=== PATIENT | male | born 1960 | race Caucasian/White ===

== ENCOUNTER 2016-08-30 17:52 | Emergency (ER) | payer BC ==
[2016-08-30 18:46] LABS: CHLORIDE,CL 104 mmol/L (98-107); SODIUM,NA 141 mmol/L (136-145)
[2016-08-30] MEDS ORDERED: Aspirin 81 MG Tab.Chew PO ONE (19:33)
--- NOTE | 2016-08-31 08:35 | ER ---
Date of Service: 08/30/2016 SUBJECTIVE: Luis presents to the emergency room with complaints of bilateral visual field loss. The patient states that he was at home last night using his computer when he developed acute onset of visual field loss and bilateral hemianopsia. The patient states that is at the onset of the visual field loss he had onset of a headache that lasted approximately 6 hours. He states that when he woke this morning, he was experiencing what he would describe as "tunnel vision." He states that his headache had improved. He was not experiencing any muscle weakness in his upper lower extremities, difficulties with speech or ambulation, or other worrisome signs or symptoms. Risk factors for stroke include hypertension, type 2 diabetes mellitus, and dyslipidemia. He denies any recent head trauma. PAST MEDICAL HISTORY: 1. Hypertension. 2. Dyslipidemia. 3. Type 2 diabetes mellitus. 4. Hypothyroidism. MEDICATIONS: 1. Lisinopril/hydrochlorothiazide 20/12.5 one tablet daily. 2. Metformin 500 mg p.o. b.i.d. 3. Atorvastatin 20 mg p.o. daily. 4. Levothyroxine 150 mcg p.o. daily. ALLERGIES: NKDA. REVIEW OF SYSTEMS: Constitutional: Denies any fever or chills. HEENT: No sore throat, rhinorrhea, or congestion. Again, has profound bilateral visual field loss, acute onset last night approximately 2030 hours. Denies any facial droop or weakness. Respiratory: No shortness of breath. Cardiac: Denies any substernal chest pain. No jaw, arm, neck, or back pain. GI: No nausea, vomiting, or diarrhea. No melena, hematochezia, or hematemesis. : Denies any dysuria. Musculoskeletal: No myalgias or arthralgias. Neurologic: No fainting, blackouts, or lightheadedness. PHYSICAL EXAMINATION: General: This is a 56-year-old male patient, who is in no acute distress. At one point during his care, he did complain of mild occipital headache. Vital Signs: Initial blood pressure was 161/85 and this improved to 142/78, heart rate initially 101 and was later found to be approximately 84, respiratory rate in the low to mid 20s, temperature is 97.9, and O2 saturation 96% on room air. Skin: Warm, pink, and dry. HEENT. Head is normocephalic, atraumatic. Eyes, PERRLA. Extraocular movements are intact. Visual pacheco, he does have a profound visual field deficit bilaterally. At approximately 10 to 15 degrees, he has lost his visual pacheco bilaterally. It appears to be a bit worse on the right than on the left. No facial droop noted. Chest: No sternal or intercostal retractions noted. Lungs: Clear to auscultation. Heart: Regular rate and rhythm. Abdomen: Soft and nontender. There is no hepatosplenomegaly noted. There are no masses noted. Extremities: Without edema. Neurologic: He is alert. Answers all questions appropriately. His speech is fluent. His gait is within normal limits. Please refer to his NIH stroke scale. He has no pronator drift. His Romberg is negative. He has 5/5 strength in both his upper and lower extremities. DIAGNOSTIC DATA: CT scan of the patient's brain without contrast was obtained. He does have evidence of a hypodensity in the occipital portion of the left lobe of this brain consistent with an ischemic stroke. He also has moderate amount of intracranial atherosclerosis and calcification. The findings are consistent with an acute to early subacute ischemic stroke, which is consistent with his history provided to us. LABORATORY DATA: CBC was obtained. WBCs 8.8, hemoglobin is 14.4, and platelets are 268. PT is 9.6, INR is 0.8, and PTT is 24.7. Chemistry; sodium is 141, potassium is 3.8, chloride is 104, bicarb is 27, BUN is 24, creatinine is 1.0, GFR is greater than 60, glucose 168, calcium is 8.4, and corrected calcium is 8.32. Total bilirubin is 0.4, AST is 36, ALT is 63, and alkaline phosphatase is 83. Troponin is 0.00. Total protein is 7.3. EMERGENCY ROOM COURSE: Stroke code was called. IV access was established. He was emergently brought to CT for CT scan. Labs were drawn. On finding the CT results, he was given 324 mg of aspirin p.o. He remained stable my care in the emergency room. ASSESSMENT: Acute ischemic stroke involving the left occipital portion with bilateral visual field loss (hemianopsia). PLAN: I did speak with Dr. Hernández, the neurologist, on-call at [facility] in [place]. He advised that the patient be transferred to their facility for CT angiogram, carotid ultrasound, and further evaluation and workup by Neurology. I did discuss this with the patient and he adamantly refused transfer. Did speak with him numerous times regarding this and informed him that this is a potentially a condition that could cause complete blindness and could be potentially life-threatening. Again, he was alert to time, date, and place and was able to answer all questions and did not appear to be in anyway impaired, and was able to make some decisions about his medical condition, but he continued to refuse. He did sign the AMA form and this was discussed with the patient. He again was informed that he could become completely blind or experience potential for intracranial hemorrhage, particularly in the subacute phase following an ischemic CVA. He was also informed that he has other atherosclerosis, so he does have risk for further worsening of his symptoms or different symptoms of cerebrovascular accident, but he continues to refuse. He was given an open ended invitation to return to the emergency room if he decides to. He did ask where to go tomorrow to be evaluated and he was advised to go to [facility] Emergency Room for evaluation and treatment. He is to start 81 mg of aspirin once daily. All questions were answered. MWK: 08/30/2016 20:34:48 MODL: 08/30/2016 21:29:25 /[id number]
== END 2016-08-30 19:55 | disposition left against medical advice (07) ==
LOC: VM.ED 17:52
DX: I63.9 Cerebral infarction, unspecified (principal); H54.3 Unqualified visual loss, both eyes; I10 Essential (primary) hypertension; E11.9 Type 2 diabetes mellitus without complications; E03.9 Hypothyroidism, unspecified; Z79.899 Other long term (current) drug therapy
CPT/HCPCS: 70450; 80053; 84484; 85025; 85610; 85730; 99285; A9270

== ENCOUNTER 2018-09-04 12:16 | Emergency (ER) | payer BC ==
[2018-09-04] MEDS ORDERED: Take Home: Amoxicillin/Clavulanate K 875-125 MG Tab, 2 Tab Pack PO ONE (12:43)
[2018-09-04] MEDS ORDERED: Take Home: Acetaminophen/HYDROcodone 325-5 MG, 5 Tab Pack PO ONE (12:43)
--- NOTE | 2018-09-04 14:47 | EDM.PDOC ---
ED HPI GENERAL MEDICAL PROBLEM - General Stated Complaint: TOOTH ACHE Time Seen by Provider: 09/04/18 12:16 Source of Information: Reports: Patient History Limitations: Reports: No Limitations - History of Present Illness INITIAL COMMENTS - FREE TEXT/NARRATIVE: PtHanny presents to ED with 3-4 day history of pain to R lower premolar area. He denies any fever or chills. He states that he does not have/routinely go to a dentist. States that he has noted swelling to the R side of his face. No problems with swallowing/managing his secretions. No chest pain or shortness of breath. No nausea, vomiting, or diarrhea. Denies any neck pain/decreased ROM. Onset: Today Onset Date: 09/04/18 Location: Reports: Face Quality: Reports: Ache, Burning Severity: Moderate - Related Data Allergies Allergy/AdvReac Type Severity Reaction Status Date / Time No Known Allergies Allergy Verified 08/30/16 19:23 Home Meds: Home Meds Levothyroxine Sodium 150 mcg PO DAILY 08/30/16 [History] Lisinopril/Hydrochlorothiazide [Lisinopril-Hctz 20-12.5 mg Tab] 1 tab PO DAILY 08/30/16 [History] atorvaSTATin Calcium [Atorvastatin Calcium] 20 mg PO DAILY 08/30/16 [History] metFORMIN HCl [Metformin HCl] 500 mg PO BID 08/30/16 [History] ED ROS GENERAL - Review of Systems Review Of Systems: See Below Constitutional: Reports: No Symptoms HEENT: Reports: Dental Pain Respiratory: Reports: No Symptoms Cardiovascular: Reports: No Symptoms Endocrine: Reports: No Symptoms GI/Abdominal: Reports: No Symptoms : Reports: No Symptoms Musculoskeletal: Reports: No Symptoms Skin: Reports: No Symptoms Neurological: Reports: No Symptoms Psychiatric: Reports: No Symptoms Hematologic/Lymphatic: Reports: No Symptoms Immunologic: Reports: No Symptoms ED EXAM, GENERAL - Physical Exam Exam: See Below Exam Limited By: No Limitations General Appearance: Alert, WD/WN, No Apparent Distress Eye Exam: Bilateral Eye: EOMI, Normal Fundi, Normal Inspection, PERRL Nose: Normal Inspection, Normal Mucosa Throat/Mouth: Normal Inspection, Normal Lips, Other (dental caries to R canine as well as R premolar. No obvious abscess. There is some mild swelling to the R side of the face. Minimal lymphadenopathy) Neck: Normal Inspection, Supple, Non-Tender, Full Range of Motion Course - Orders/Labs/Meds Meds: Medications Discontinued Medications Generic Name Dose Route Start Last Admin Trade Name Titus PRN Reason Stop Dose Admin Hydrocodone Bitart/Acetaminophen 1 packet 09/04/18 12:43 09/04/18 13:05 Take Home: Acetam/Hydrocodon 325-5 Mg, 5 Pack PO 09/04/18 12:44 1 packet ONETIME ONE Administration Amoxicillin/Clavulanate Potassium 1 packet 09/04/18 12:43 09/04/18 13:05 Take Home: Amox/Clavulanate 875-12, 2 Tab Pac PO 09/04/18 12:44 1 packet ONETIME ONE Administration Departure - Departure Time of Disposition: 13:05 Disposition: Home, Self-Care 01 Condition: Good Clinical Impression: Dental infection - Discharge Information Instructions: Acetaminophen; Hydrocodone tablets or capsules, Amoxicillin; Clavulanic Acid tablets, Dental Abscess Referrals: Ju Cazares CUST[employer]ER SERVICE ASSISTANT [Primary Care Provider] - Additional Instructions: augmentin 875mg 1 twice daily for 10 days norco 5/325mg 1 every 4-6 hours as needed for pain Ibuprofen 600mg every 6 hours Follow-up with dentist EDDIE - Assessment/Plan Plan: augmentin 875mg 1 twice daily for 10 days norco 5/325mg 1 every 4-6 hours as needed for pain Ibuprofen 600mg every 6 hours Follow-up with dentist EDDIE
== END 2018-09-04 13:05 | disposition home or self-care (01) ==
LOC: VM.ED 12:16
DX: K04.7 Periapical abscess without sinus (principal); K02.9 Dental caries, unspecified; Z79.899 Other long term (current) drug therapy
CPT/HCPCS: 99282; A9270

== ENCOUNTER 2025-03-02 17:46 | Emergency (ER) | payer BC ==
[2025-03-02 18:18] LABS: BASOPHILS ABSOLUTE AUTO 0.0 x10^3/uL (0.0-0.2); BASOPHILS PERCENT AUTO 0.3 % (0.2-1.2); EOSINOPHILS ABSOLUTE AUTO 0.1 x10^3/uL (0.0-0.5); EOSINOPHILS PERCENT AUTO 1.0 % (0.0-4.0); IMMATURE GRAN ABSOLUTE AUTO 0.03 x10^3/uL (0.00-0.07); IMMATURE GRAN PERCENT AUTO 0.30 % (0.00-0.43); LYMPHOCYTES ABSOLUTE AUTO 1.0 x10^3/uL (1.0-4.8); LYMPHOCYTES PERCENT AUTO 8.5 % (25.0-50.0); MONOCYTES ABSOLUTE AUTO 0.6 x10^3/uL (0.0-0.8); MONOCYTES PERCENT AUTO 5.6 % (2.0-11.0); NEUTROPHILS ABSOLUTE AUTO 9.5 x10^3/uL (1.8-7.7); NEUTROPHILS PERCENT AUTO 84.3 % (50.0-80.0); PLATELET COUNT,PLT 286 x10^3/uL (130-400); RED BLOOD CELL COUNT 4.99 x10^6/uL (4.5-6.0); WHITE BLOOD CELL COUNT,WBC 11.3 x10^3/uL (4.0-10.0)
[2025-03-02 18:19] LABS: APPEARANCE,URINE CLEAR (CLEAR); GLUCOSE,URINE 500 mg/dL (NEGATIVE); OCCULT BLOOD,URINE NEGATIVE (NEGATIVE)
[2025-03-02 18:30] LABS: SQUAMOUS EPITHELIAL CELLS,UR RARE /HPF (NOT SEEN)
[2025-03-02 18:38] LABS: A/G RATIO 0.89; ALANINE AMINOTRANSFERASE,ALT 20 U/L (16-63); ASPARTATE AMNIOTRANSFERASE,AST 14 U/L (15-37); BILIRUBIN TOTAL 0.3 mg/dL (0.2-1.0); BLOOD UREA NITROGEN,BUN 27 mg/dL (7-18); CARBON DIOXIDE,CO2 31 mmol/L (21-32); CHLORIDE,CL 100 mmol/L (98-107); CREATININE 1.1 mg/dL (0.70-1.30); ESTIMATED GFR 75 mL/min (>=60); GLUCOSE RANDOM 258 mg/dL (70-99); POTASSIUM,K 4.2 mmol/L (3.5-5.1); PROTEIN TOTAL,TP 7.2 g/dL (6.4-8.2); SODIUM,NA 139 mmol/L (136-145)
[2025-03-02] MEDS ORDERED: Sodium Chloride 0.9% 10 ML Syringe FLUSH PRN (18:40)
[2025-03-02] MEDS: Ondansetron 4 MG/2 ML SDV IVPUSH ONE (18:53)
[2025-03-02] MEDS: Iopamidol 612 MG/ML 100 ML Bottle IVPUSH ONE (19:19)
== END 2025-03-02 21:12 | disposition left against medical advice (07) ==
LOC: VM.ED 17:46
DX: K56.609 Unspecified intestinal obstruction, unspecified as to partial versus complete obstruction (principal); E11.9 Type 2 diabetes mellitus without complications; I10 Essential (primary) hypertension; E78.00 Pure hypercholesterolemia, unspecified; Z79.890 Hormone replacement therapy; Z79.899 Other long term (current) drug therapy; Z79.84 Long term (current) use of oral hypoglycemic drugs
CPT/HCPCS: 36415; 74177; 80053; 81001; 83690; 85025; 86140; 96374; 96375; 99284; 99284-25; J2270; J2405; Q9967

== ENCOUNTER 2025-03-03 08:32 | Emergency (ER) | payer BC ==
[2025-03-03] MEDS ORDERED: Sodium Chloride 0.9% 10 ML Syringe FLUSH PRN (08:36)
[2025-03-03 08:47] LABS: BASOPHILS ABSOLUTE AUTO 0.0 x10^3/uL (0.0-0.2); BASOPHILS PERCENT AUTO 0.5 % (0.2-1.2); EOSINOPHILS ABSOLUTE AUTO 0.2 x10^3/uL (0.0-0.5); EOSINOPHILS PERCENT AUTO 2.0 % (0.0-4.0); IMMATURE GRAN ABSOLUTE AUTO 0.02 x10^3/uL (0.00-0.07); IMMATURE GRAN PERCENT AUTO 0.30 % (0.00-0.43); LYMPHOCYTES ABSOLUTE AUTO 0.8 x10^3/uL (1.0-4.8); LYMPHOCYTES PERCENT AUTO 11.3 % (25.0-50.0); MONOCYTES ABSOLUTE AUTO 0.7 x10^3/uL (0.0-0.8); MONOCYTES PERCENT AUTO 8.9 % (2.0-11.0); NEUTROPHILS ABSOLUTE AUTO 5.6 x10^3/uL (1.8-7.7); NEUTROPHILS PERCENT AUTO 77.0 % (50.0-80.0); PLATELET COUNT,PLT 305 x10^3/uL (130-400); RED BLOOD CELL COUNT 4.90 x10^6/uL (4.5-6.0); WHITE BLOOD CELL COUNT,WBC 7.3 x10^3/uL (4.0-10.0)
[2025-03-03 09:09] LABS: A/G RATIO 0.82; ALANINE AMINOTRANSFERASE,ALT 20 U/L (16-63); ASPARTATE AMNIOTRANSFERASE,AST 16 U/L (15-37); BILIRUBIN TOTAL 0.4 mg/dL (0.2-1.0); BLOOD UREA NITROGEN,BUN 23 mg/dL (7-18); CARBON DIOXIDE,CO2 29 mmol/L (21-32); CHLORIDE,CL 102 mmol/L (98-107); CREATININE 1.2 mg/dL (0.70-1.30); ESTIMATED GFR 68 mL/min (>=60); GLUCOSE RANDOM 225 mg/dL (70-99); POTASSIUM,K 4.4 mmol/L (3.5-5.1); PROTEIN TOTAL,TP 6.9 g/dL (6.4-8.2); SODIUM,NA 139 mmol/L (136-145)
[2025-03-03] MEDS: Lactated Ringers 1,000 ML IV ONE (09:20)
== END 2025-03-03 10:14 | disposition home or self-care (01) ==
LOC: VM.ED 08:32
DX: K56.609 Unspecified intestinal obstruction, unspecified as to partial versus complete obstruction (principal); E78.00 Pure hypercholesterolemia, unspecified; E11.9 Type 2 diabetes mellitus without complications; I10 Essential (primary) hypertension; Z79.890 Hormone replacement therapy; Z79.84 Long term (current) use of oral hypoglycemic drugs; Z79.899 Other long term (current) drug therapy
CPT/HCPCS: 36415; 74019; 80053; 85025; 86140; 96360; 99284; J7120